=== PATIENT | female | born 1965 | race Hispanic/Latino ===

== ENCOUNTER 2019-04-04 18:53 | Inpatient (IN) | payer OTHER ==
[~2019-04-04] VITALS: Ht 160 cm; Wt 65.8 kg
[2019-04-04] MEDS ORDERED: SODIUM CHLORIDE 0.9% 500ML 500 ML IV ONE ×2 (19:20→22:43)
[2019-04-04 19:47] LABS: APPEARANCE,URINE Clear (CLEAR); BILIRUBIN,URINE Negative (NEGATIVE); COLOR,URINE Yellow (YELLOW); GLUCOSE, URINE (UA) Negative (NEGATIVE); KETONES,URINE Negative (NEGATIVE); LEUKOCYTE ESTERASE ,URINE Negative (NEGATIVE); NITRATE,URINE Negative (NEGATIVE); OCCULT BLOOD,URINE Trace (NEGATIVE); PROTEIN,URINE Negative (NEGATIVE); UROBILINOGEN,URINE 0.2 mg/dL (0.2-1.0)
[2019-04-04 19:55] LABS: CREATININE 0.8 mg/dL (0.5-1.5); POTASSIUM 3.8 mmol/L (3.5-5.1)
[2019-04-04 20:00] LABS: ALBUMIN 2.5 g/dL (3.5-5.0); BILIRUBIN,TOTAL 0.3 mg/dL (0.2-1.0); TOTAL PROTEIN, SERUM 8.4 g/dL (6.0-8.3)
[2019-04-04 20:29] LABS: BASOPHILS % (AUTO) 0.6 % (0.0-5.0); EOSINOPHILS % (AUTO) 2.3 % (0.0-8.0); HEMATOCRIT 22.5 % (36-48); LYMPHOCYTES % (AUTO) 20.8 % (21.0-51.0); MEAN CORPUSCULAR HEMOGLOBIN 18.9 pg (27.0-33.0); MEAN CORPUSCULAR HGB CONC 30.7 g/dL (32.0-36.0); MEAN CORPUSCULAR VOLUME 61.4 fL (79-99); NEUTROPHILS % (AUTO) 70.3 % (40.0-77.0); RED BLOOD CELL COUNT(AUTO) 3.65 MIL/uL (4.00-5.50); RED CELL DISTRIBUTION WIDTH 18.3 % (11.0-15.5)
[2019-04-04 20:30] LABS: PLATELET COUNT (AUTO) 740 K/uL (130-400)
[2019-04-04 20:32] LABS: BACTERIA,URINE Rare /HPF (None Seen); RBC,URINE 0-1 /HPF (0-1); WBC,URINE None Seen /HPF (0-1)
[2019-04-04 20:33] LABS: SQUAMOUS EPITHELIAL CELL,UR 0-2 /HPF (0-2)
[2019-04-04 21:10] LABS: RETICULOCYTE % (AUTO) 1.95 % (0.42-2.23)
[2019-04-04 21:26] LABS: % IRON SATURATION 4.7 % (22-44)
[2019-04-04] MEDS: SODIUM CHLORIDE 0.9% 1000ML 1,000 ML IV SCH (22:38)
[2019-04-04] MEDS ORDERED: ACETAMINOPHEN 325 MG TAB PO PRN ×2 (22:45)
[2019-04-04] MEDS ORDERED: ZOLPIDEM TARTRATE 5 MG TAB PO PRN (22:45)
[2019-04-04] MEDS ORDERED: ONDANSETRON HCL 4 MG/2 ML VIAL IV PRN (22:45)
[2019-04-05] MEDS: CEFTRIAXONE SODIUM 1 GM IVP SCH (03:15)
[2019-04-05] MEDS ORDERED: CEFTRIAXONE SODIUM 1 GM ONE (05:56)
[2019-04-05] MEDS ORDERED: SODIUM CHLORIDE 0.9% 1000ML 1,000 ML IV ONE (05:58)
[2019-04-05 06:23] LABS: BASOPHILS % (AUTO) 0.2 % (0.0-5.0); EOSINOPHILS % (AUTO) 3.5 % (0.0-8.0); HEMATOCRIT 26.3 % (36-48); MEAN CORPUSCULAR HEMOGLOBIN 21.3 pg (27.0-33.0); MEAN CORPUSCULAR HGB CONC 31.9 g/dL (32.0-36.0); MEAN CORPUSCULAR VOLUME 66.8 fL (79-99); NEUTROPHILS % (AUTO) 63.3 % (40.0-77.0); PLATELET COUNT (AUTO) 628 K/uL (130-400); RED BLOOD CELL COUNT(AUTO) 3.93 MIL/uL (4.00-5.50); WHITE BLOOD COUNT (AUTO) 8.2 K/uL (4.8-10.8)
[2019-04-05 06:42] LABS: ALBUMIN 2.2 g/dL (3.5-5.0); CREATININE 0.5 mg/dL (0.5-1.5); POTASSIUM 4.1 mmol/L (3.5-5.1); TOTAL PROTEIN, SERUM 7.7 g/dL (6.0-8.3)
[2019-04-05] MEDS ORDERED: ENOXAPARIN SODIUM 30 MG/0.3 ML SQ ONE (08:25)
[2019-04-05] MEDS: SODIUM CHLORIDE 0.9% 1000ML 1,000 ML IV SCH ×2 (08:38→18:56)
[2019-04-05] MEDS: ENOXAPARIN SODIUM 30 MG/0.3 ML SQ SCH (09:00)
[2019-04-05 15:27] VITALS: BP 101/64
--- NOTE | 2019-04-05 17:35 | NUR ---
DR. JEANNETTE WASHINGTOND. WAITING HEALTH ASSOCIATE BACK.
[2019-04-05 19:34] VITALS: BP 107/68
[2019-04-05] MEDS ORDERED: IOHEXOL-350 75 ML VIAL IV ONE (20:32)
[2019-04-05] MEDS ORDERED: DIATR MEGLU/DIATRIZOATE SODIUM 30 ML BOTTLE ONE (20:32)
[2019-04-05 23:36] VITALS: BP 108/61
[2019-04-06] MEDS: CEFTRIAXONE SODIUM 1 GM IVP SCH (03:51)
[2019-04-06 04:00] VITALS: BP 111/65
[2019-04-06 05:06] LABS: MEAN CORPUSCULAR HEMOGLOBIN 21.6 pg (27.0-33.0); MEAN CORPUSCULAR HGB CONC 32.3 g/dL (32.0-36.0); MEAN CORPUSCULAR VOLUME 67.1 fL (79-99); PLATELET COUNT (AUTO) 577 K/uL (130-400); RED BLOOD CELL COUNT(AUTO) 3.58 MIL/uL (4.00-5.50); RED CELL DISTRIBUTION WIDTH 23.5 % (11.0-15.5); WHITE BLOOD COUNT (AUTO) 7.5 K/uL (4.8-10.8)
[2019-04-06 05:43] LABS: ALBUMIN 2.1 g/dL (3.5-5.0); BILIRUBIN,TOTAL 0.5 mg/dL (0.2-1.0); CREATININE 0.6 mg/dL (0.5-1.5); POTASSIUM 3.8 mmol/L (3.5-5.1); TOTAL PROTEIN, SERUM 7.5 g/dL (6.0-8.3)
[2019-04-06] MEDS: SODIUM CHLORIDE 0.9% 1000ML 1,000 ML IV SCH (06:06)
[2019-04-06] MEDS: ENOXAPARIN SODIUM 30 MG/0.3 ML SQ SCH (07:39)
[2019-04-06 07:45] VITALS: BP 109/66
--- NOTE | 2019-04-06 10:23 | NUR ---
DC PLAN PER PATIENT, SHE IS INDEPENDENT, LIVES WITH HER FATHER AND HER SON, NO PROVIDER, NO EQUIPMENT, AND FEELS SAFE TO RETURN HOME. Addendum: 04/06/19 at 1024 by ESTEFANIA GEORGES RN CM Amended: Links added.
--- NOTE | 2019-04-06 10:56 | NUR ---
DR. MACHADO VISITED WITH PATIENT. NEW ORDERS RECEIVED AND CARRIED OUT. DR MACHADO WANTS TO WAIT ON THE INPUT FROM DR. WHARTON.
[2019-04-06 11:30] VITALS: BP 98/62
[2019-04-06] MEDS ORDERED: FERROUS SULFATE 325 MG TABLET.DR PO SCH (11:45)
[2019-04-06 16:00] VITALS: BP 133/61
[2019-04-06 19:38] VITALS: BP 121/63
[2019-04-07] VITALS (12 sets, daily range): BP systolic 85–124; BP diastolic 55–67
[2019-04-07] MEDS: CEFTRIAXONE SODIUM 1 GM IVP SCH (03:58)
[2019-04-07 06:03] LABS: BASOPHILS % (AUTO) 0.5 % (0.0-5.0); EOSINOPHILS % (AUTO) 2.8 % (0.0-8.0); HEMATOCRIT 25.7 % (36-48); LYMPHOCYTES % (AUTO) 22.2 % (21.0-51.0); MEAN CORPUSCULAR HEMOGLOBIN 21.6 pg (27.0-33.0); MEAN CORPUSCULAR HGB CONC 32.1 g/dL (32.0-36.0); MEAN CORPUSCULAR VOLUME 67.4 fL (79-99); MONOCYTES % (AUTO) 8.9 % (3.0-13.0); NEUTROPHILS % (AUTO) 65.6 % (40.0-77.0); PLATELET COUNT (AUTO) 585 K/uL (130-400); RED BLOOD CELL COUNT(AUTO) 3.82 MIL/uL (4.00-5.50); RED CELL DISTRIBUTION WIDTH 24.2 % (11.0-15.5); WHITE BLOOD COUNT (AUTO) 7.9 K/uL (4.8-10.8)
[2019-04-07 06:22] LABS: CREATININE 0.5 mg/dL (0.5-1.5); POTASSIUM 3.8 mmol/L (3.5-5.1)
[2019-04-07] MEDS: FERROUS SULFATE 325 MG TABLET.DR PO SCH (09:00)
[2019-04-07] MEDS: ENOXAPARIN SODIUM 30 MG/0.3 ML SQ SCH (09:00)
[2019-04-07 09:35] LABS: INR 1.1 (0.85-1.15); PARTIAL THROMBOPLASTIN TIME 33.3 SEC (26.3-35.5); PROTHROMBIN TIME 11.5 SEC (9.6-11.6)
[2019-04-07] MEDS ORDERED: DOXAZOSIN MESYLATE 2 MG TABLET PO ONE (12:49)
[2019-04-07] MEDS ORDERED: METOPROLOL TARTRATE 25 MG TAB ONE (12:49)
[2019-04-07] MEDS ORDERED: FENTANYL CITRATE PF 50 MCG/1 ML 2ML VIAL ONE (13:16)
[2019-04-07] MEDS ORDERED: MIDAZOLAM HCL 1 MG/ML 2ML VIAL ONE (13:17)
[2019-04-07] MEDS ORDERED: DOXAZOSIN MESYLATE 2 MG TABLET PO SCH (14:00)
[2019-04-07] MEDS ORDERED: METOPROLOL TARTRATE 25 MG TAB PO SCH (14:00)
--- NOTE | 2019-04-07 14:05 | NUR ---
CT GUIDED BIOPSY LEFT KIDNEY MASS AND RIGHT ADRENAL MASS PROCEDURE PERFORMED BY DR. RIOS. PUNCTURE SITE LEFT LUMBAR REGION. PATIENT TOLERATED PROCEDURE WELL. LEFT KIDNEY MASS SPECIMEN X 3 COLLECTED. END OF PROCEDURE AT 1410. FLOSEAL PLACED TO TRACK SITE BIOPSY NEEDLE REMOVED AND DRESSING APPLIED. PUNCTURE SITE RIGHT LUMBAR REGION. PATIENT TOLERATED PROCEDURE WELL. RIGHT ADRENAL MASS SPECIMEN X 3 COLLECTED. END OF PROCEDURE AT 1417. NO BLEEDING NOTED. REPORT GIVEN TO SARIAH SANCHEZ. PT TRANSFERRED TO 4TH FLOOR, RM 420 VIA BED. PT STABLE, AAO X 3, WITH NO C/O PAIN. SPECIMEN SENT TO LAB.
--- NOTE | 2019-04-07 14:21 | NUR ---
DR MACHADO CALLED PER DR MACHADO, PT TO HAVE BILATERAL RENAL MASSES BIOPSIED AND GIVEN 2 ONE TIME DOSES OF MEDICATIONS, ORDERS NOTED.
--- NOTE | 2019-04-07 14:23 | NUR ---
BONE SCAN DELAY PER SABA IN NUCLEAR MEDICINE- RADIOLOGIST STATED THAT PT CANNOT HAVE BONESCAN FOR UP TO 487 HRS POST RENAL BIOPSY DUE TO IT AFFECTING IMAGES
[2019-04-08 00:15] VITALS: BP 92/59
[2019-04-08] MEDS: CEFTRIAXONE SODIUM 1 GM IVP SCH (04:01)
[2019-04-08 04:15] VITALS: BP 100/60
[2019-04-08 05:40] LABS: BASOPHILS % (AUTO) 0.6 % (0.0-5.0); EOSINOPHILS % (AUTO) 4.2 % (0.0-8.0); HEMATOCRIT 24.6 % (36-48); LYMPHOCYTES % (AUTO) 18.7 % (21.0-51.0); MEAN CORPUSCULAR HEMOGLOBIN 21.5 pg (27.0-33.0); MEAN CORPUSCULAR HGB CONC 31.9 g/dL (32.0-36.0); MEAN CORPUSCULAR VOLUME 67.4 fL (79-99); MONOCYTES % (AUTO) 10.1 % (3.0-13.0); NEUTROPHILS % (AUTO) 66.4 % (40.0-77.0); PLATELET COUNT (AUTO) 520 K/uL (130-400); RED BLOOD CELL COUNT(AUTO) 3.66 MIL/uL (4.00-5.50); RED CELL DISTRIBUTION WIDTH 24.1 % (11.0-15.5); WHITE BLOOD COUNT (AUTO) 5.7 K/uL (4.8-10.8)
[2019-04-08 05:43] LABS: CREATININE 0.5 mg/dL (0.5-1.5); POTASSIUM 3.8 mmol/L (3.5-5.1)
[2019-04-08 08:00] VITALS: BP 92/67
[2019-04-08] MEDS: FERROUS SULFATE 325 MG TABLET.DR PO SCH (09:38)
[2019-04-08] MEDS: ENOXAPARIN SODIUM 30 MG/0.3 ML SQ SCH (09:39)
[2019-04-08 12:00] VITALS: BP 87/57
[2019-04-08 16:00] VITALS: BP 104/53
[2019-04-08 19:00] VITALS: BP 111/63
[2019-04-09] VITALS: BP 97/54
[2019-04-09] MEDS: CEFTRIAXONE SODIUM 1 GM IVP SCH (03:49)
[2019-04-09 04:00] VITALS: BP 94/54
[2019-04-09 05:48] LABS: BASOPHILS % (AUTO) 0.5 % (0.0-5.0); EOSINOPHILS % (AUTO) 4.4 % (0.0-8.0); HEMATOCRIT 24.6 % (36-48); LYMPHOCYTES % (AUTO) 26.6 % (21.0-51.0); MEAN CORPUSCULAR HEMOGLOBIN 21.7 pg (27.0-33.0); MEAN CORPUSCULAR HGB CONC 32.1 g/dL (32.0-36.0); MEAN CORPUSCULAR VOLUME 67.5 fL (79-99); MONOCYTES % (AUTO) 11.6 % (3.0-13.0); NEUTROPHILS % (AUTO) 56.9 % (40.0-77.0); PLATELET COUNT (AUTO) 544 K/uL (130-400); RED BLOOD CELL COUNT(AUTO) 3.64 MIL/uL (4.00-5.50); RED CELL DISTRIBUTION WIDTH 24.8 % (11.0-15.5); WHITE BLOOD COUNT (AUTO) 6.2 K/uL (4.8-10.8)
[2019-04-09 06:00] LABS: CREATININE 0.6 mg/dL (0.5-1.5); POTASSIUM 3.5 mmol/L (3.5-5.1)
[2019-04-09] MEDS: ENOXAPARIN SODIUM 30 MG/0.3 ML SQ SCH (07:45)
[2019-04-09] MEDS: FERROUS SULFATE 325 MG TABLET.DR PO SCH (07:45)
[2019-04-09 08:00] VITALS: BP 94/54
[2019-04-09 12:00] VITALS: BP 100/53
--- NOTE | 2019-04-09 15:52 | NUR ---
BONE SCAN DONE BONE SCAN DONE. HOSPITALISTS MADE AWARE. STATED PT IS OK TO DC IF OK WITH DIO
--- NOTE | 2019-04-09 15:54 | NUR ---
DR WHARTON PER DR Villatoro OK TO DC HOME JUST FOLLOW UP IN OFFICE THIS WEEK. PT VERBALIZED UNDERSTANDING
== END 2019-04-09 16:49 | disposition home or self-care (01) | DRG 687 ==
LOC: EDH 18:53 → OBSVTOIN 22:38 → EDHIP 22:38 → 4DH 04-05 14:43 → 4CH 04-05 14:44
PROVIDERS: ADMIT Internal Medicine; ATTEND Internal Medicine
PROC: 30233N1 Transfusion of Nonautologous Red Blood Cells into Peripheral Vein, Percutaneous Approach (ICD-10-PCS; 2019-04-04)
PROC: 0TB13ZX Excision of Left Kidney, Percutaneous Approach, Diagnostic (ICD-10-PCS; principal; 2019-04-07)
PROC: 0GB33ZX Excision of Right Adrenal Gland, Percutaneous Approach, Diagnostic (ICD-10-PCS; 2019-04-07)
DX: C64.2 Malignant neoplasm of left kidney, except renal pelvis (principal); E44.0 Moderate protein-calorie malnutrition; D50.0 Iron deficiency anemia secondary to blood loss (chronic); R31.29 Other microscopic hematuria; N28.89 Other specified disorders of kidney and ureter; F17.210 Nicotine dependence, cigarettes, uncomplicated; D35.01 Benign neoplasm of right adrenal gland; E27.9 Disorder of adrenal gland, unspecified; Z82.49 Family history of ischemic heart disease and other diseases of the circulatory system; Z83.3 Family history of diabetes mellitus; Z68.25 Body mass index [BMI] 25.0-25.9, adult
CPT/HCPCS: 36415; 49180; 50200; 71250; 74178; 76770; 77012; 78306; 80048; 80053; 81001; 82270; 82550; 82607; 82728; 84484; 85025; 85027; 85610; 85730; 86850; 86900; 86901; 86922; 88305; 93005; 99291; A9503; G0378; J0696; J1650; J2250; J3010; J7030; J7040; P9016; Q9963; Q9967